=== PATIENT | male | born 1955 | race Two or more races ===

== ENCOUNTER 2023-10-11 22:43 | Inpatient (IN) | payer MEDICARE ==
[~2023-10-11] VITALS: Ht 185.4 cm; Wt 99.8 kg
[2023-10-11 22:57] LABS: BASOPHILS % (AUTO) 0.2 % (0.0-2.0); EOSINOPHILS # (AUTO) 0.1 K/uL (0.0-0.7); HEMATOCRIT 41 % (39-51); HEMOGLOBIN 13.4 g/dL (13.5-17.5); LYMPHOCYTES # (AUTO) 1.6 K/uL (0.8-4.8); LYMPHOCYTES % (AUTO) 26.1 % (20.0-44.0); MEAN CORPUSCULAR HEMOGLOBIN 31 PG (26.0-33.0); MEAN CORPUSCULAR HGB CONC 33 g/dl (31.0-36.0); MEAN CORPUSCULAR VOLUME 94 fL (80-96); MONOCYTES # (AUTO) 0.3 K/uL (0.1-1.30); MONOCYTES % (AUTO) 5.3 % (2.0-12.0); NEUTROPHILS # (AUTO) 4.1 K/uL (1.8-8.9); NEUTROPHILS % (AUTO) 66.4 % (43.0-81.0); PLATELET COUNT (AUTO) 199 K/uL (150-450); RED BLOOD CELL COUNT(AUTO) 4.35 MIL/uL (4.5-6.0); RED CELL DISTRIBUTION WIDTH 13.7 % (11.5-15.0); WHITE BLOOD COUNT (AUTO) 6.1 K/uL (4.3-11.0)
[2023-10-11] MEDS ORDERED: IOHEXOL-350 100 ML VIAL IV ONE (22:57)
[2023-10-11 23:09] LABS: CARBON DIOXIDE 21 mmol/L (21-32); CHLORIDE 105 mmol/L (98-107); GLUCOSE 102 mg/dL (74-106); POTASSIUM 3.6 mmol/L (3.5-5.1); SODIUM SERUM 135 mmol/L (136-145); UREA NITROGEN, BLOOD 9 mg/dL (7-18)
[2023-10-11 23:10] LABS: INR 1.08 (0.91-1.10); PROTHROMBIN TIME 11.4 SECS (9.2-11.1)
[2023-10-11 23:12] LABS: ALANINE AMINOTRANSFERASE 13 U/L (12-78); ALBUMIN 3.7 g/dL (3.4-5.0); ALKALINE PHOSPHATASE 78 U/L (46-116); ASPARTATE AMINOTRANSFERASE 12 U/L (15-37); BILIRUBIN,DIRECT 0.2 mg/dL (0.0-0.2); BILIRUBIN,TOTAL 0.8 mg/dL (0.2-1.0); CALCIUM, SERUM 10.1 mg/dL (8.5-10.1); TOTAL PROTEIN, SERUM 7.2 g/dL (6.4-8.2)
[2023-10-11] MEDS ORDERED: ASPIRIN 325 MG TABLET ONE (23:49)
[2023-10-11] MEDS: ASPIRIN 325 MG TABLET PO ONE (23:55)
[2023-10-12] MEDS ORDERED: hydrALAZINE HCL IV 20 MG VIAL IV PRN (01:00)
[2023-10-12] MEDS ORDERED: MORPHINE SULFATE INJ 2 MG/ML DISP.SYRIN IV PRN (01:00)
[2023-10-12] MEDS ORDERED: ACETAMINOPHEN 325 MG TABLET PO PRN (01:00)
[2023-10-12 01:15] VITALS: BP 143/82; TEMP 98.4; O2SAT 99
[2023-10-12 04:00] VITALS: BP 139/83; TEMP 97.9; O2SAT 98
[2023-10-12 07:00] VITALS: BP 132/82; TEMP 98.4; O2SAT 97
[2023-10-12] MEDS: HEPARIN SODIUM, PORCINE 5000 UNITS/1 ML VIAL SQ SCH (09:14)
[2023-10-12] MEDS ORDERED: OXYB5TAB16 PO (11:46)
[2023-10-12] MEDS ORDERED: GABA-536 PO (11:46)
[2023-10-12] MEDS ORDERED: MELA3TAB41 PO (11:46)
[2023-10-12] MEDS ORDERED: LITH300C4 PO (11:46)
[2023-10-12] MEDS ORDERED: ASCO-352 PO (11:46)
[2023-10-12] MEDS ORDERED: QUET50TA PO (11:46)
[2023-10-12] MEDS ORDERED: FERR325T28 PO (11:46)
[2023-10-12] MEDS ORDERED: CHOL200059 PO (11:46)
[2023-10-12] MEDS ORDERED: FINA5TAB4 PO (11:46)
[2023-10-12 12:14] LABS: THYROID STIMULATING HORMONE 1.45 uIU/mL (0.358-3.74)
[2023-10-12 16:00] VITALS: BP 108/64; TEMP 98.1; O2SAT 100
[2023-10-12] MEDS ORDERED: MELATONIN 3 MG TABLET PO PRN (19:30)
[2023-10-12 20:21] VITALS: BP 123/75; TEMP 98.9; O2SAT 95
[2023-10-12] MEDS ORDERED: LITHIUM CARBONATE 150 MG CAPSULE ONE (21:36)
[2023-10-12] MEDS: GABAPENTIN 400 MG CAPSULE PO SCH (21:40)
[2023-10-12] MEDS: OXYBUTYNIN CHLORIDE 5 MG TABLET PO SCH (21:40)
[2023-10-12] MEDS: QUETIAPINE FUMARATE 100 MG TABLET PO SCH (21:40)
[2023-10-12] MEDS: LITHIUM CARBONATE (300 MG CAP) 300 MG CAPSULE PO SCH (22:00)
[2023-10-12] MEDS: ONDANSETRON HCL/PF 4 MG/2 ML VIAL IVP PRN (22:14)
[2023-10-13 07:25] LABS: BASOPHILS % (AUTO) 0.3 % (0.0-2.0); EOSINOPHILS # (AUTO) 0.1 K/uL (0.0-0.7); EOSINOPHILS % (AUTO) 1.2 % (0.0-6.0); HEMATOCRIT 41 % (39-51); HEMOGLOBIN 13.9 g/dL (13.5-17.5); LYMPHOCYTES # (AUTO) 2.1 K/uL (0.8-4.8); LYMPHOCYTES % (AUTO) 24.9 % (20.0-44.0); MEAN CORPUSCULAR HEMOGLOBIN 32 PG (26.0-33.0); MEAN CORPUSCULAR HGB CONC 34 g/dl (31.0-36.0); MEAN CORPUSCULAR VOLUME 94 fL (80-96); MONOCYTES # (AUTO) 0.6 K/uL (0.1-1.30); MONOCYTES % (AUTO) 6.6 % (2.0-12.0); NEUTROPHILS # (AUTO) 5.8 K/uL (1.8-8.9); PLATELET COUNT (AUTO) 220 K/uL (150-450); RED BLOOD CELL COUNT(AUTO) 4.33 MIL/uL (4.5-6.0); RED CELL DISTRIBUTION WIDTH 13.7 % (11.5-15.0); WHITE BLOOD COUNT (AUTO) 8.6 K/uL (4.3-11.0)
[2023-10-13 07:33] LABS: ALBUMIN 3.5 g/dL (3.4-5.0); BILIRUBIN,TOTAL 0.9 mg/dL (0.2-1.0); CALCIUM, SERUM 10.3 mg/dL (8.5-10.1); CREATININE 0.9 mg/dL (0.6-1.3); MAGNESIUM 2.6 mg/dL (1.8-2.4); PHOSPHORUS 2.5 mg/dL (2.5-4.9); POTASSIUM 3.9 mmol/L (3.5-5.1)
[2023-10-13 07:44] LABS: THYROID STIMULATING HORMONE 0.85 uIU/mL (0.358-3.74)
[2023-10-13 08:00] VITALS: BP 102/45; TEMP 97.9; O2SAT 97
[2023-10-13 08:39] VITALS: BP 152/91; TEMP 97.9; O2SAT 98
[2023-10-13] MEDS: CHOLECALCIFEROL 1,000 UNIT TABLET (VIT D3) PO SCH (09:10)
[2023-10-13] MEDS: FINASTERIDE (5 MG) 5 MG TABLET PO SCH (09:10)
[2023-10-13] MEDS: CYANOCOBALAMIN 1,000 MCG/ML VIAL IM SCH (09:11)
[2023-10-13] MEDS: ASCORBIC ACID 500 MG TABLET PO SCH (09:12)
[2023-10-13] MEDS ORDERED: LORAZEPAM 1 MG TABLET PO ONE (12:00)
[2023-10-13 20:00] VITALS: BP 152/91; TEMP 97.9; O2SAT 98
[2023-10-14 01:10] LABS: FOLIC ACID 3.7 ng/mL (>3.0)
[2023-10-14] MEDS: LORAZEPAM 1 MG TABLET PO PRN (02:20)
[2023-10-14 07:12] LABS: BASOPHILS % (AUTO) 0.2 % (0.0-2.0); EOSINOPHILS # (AUTO) 0.1 K/uL (0.0-0.7); EOSINOPHILS % (AUTO) 1.2 % (0.0-6.0); HEMATOCRIT 39 % (39-51); HEMOGLOBIN 12.7 g/dL (13.5-17.5); LYMPHOCYTES % (AUTO) 24.8 % (20.0-44.0); MEAN CORPUSCULAR HEMOGLOBIN 31 PG (26.0-33.0); MEAN CORPUSCULAR HGB CONC 33 g/dl (31.0-36.0); MEAN CORPUSCULAR VOLUME 94 fL (80-96); MONOCYTES # (AUTO) 0.6 K/uL (0.1-1.30); MONOCYTES % (AUTO) 7.1 % (2.0-12.0); NEUTROPHILS # (AUTO) 5.5 K/uL (1.8-8.9); NEUTROPHILS % (AUTO) 66.7 % (43.0-81.0); PLATELET COUNT (AUTO) 207 K/uL (150-450); RED BLOOD CELL COUNT(AUTO) 4.15 MIL/uL (4.5-6.0); RED CELL DISTRIBUTION WIDTH 13.5 % (11.5-15.0); WHITE BLOOD COUNT (AUTO) 8.2 K/uL (4.3-11.0)
[2023-10-14 07:30] VITALS: BP 117/97; TEMP 98.2; O2SAT 96
[2023-10-14 07:52] LABS: CALCIUM, SERUM 10.9 mg/dL (8.5-10.1); CREATININE 0.9 mg/dL (0.6-1.3); MAGNESIUM 2.4 mg/dL (1.8-2.4); PHOSPHORUS 2.7 mg/dL (2.5-4.9); POTASSIUM 3.7 mmol/L (3.5-5.1)
[2023-10-14 08:50] VITALS: BP 124/76; TEMP 97.9; O2SAT 96
[2023-10-14] MEDS: FERROUS SULFATE (325 MG) 325 MG/TAB TABLET PO SCH (09:16)
[2023-10-14] MEDS ORDERED: ASPIRIN 81 MG TAB.CHEW PO SCH (11:00)
[2023-10-14 16:00] VITALS: BP 140/122; TEMP 98.1; O2SAT 100
[2023-10-14 20:00] VITALS: BP 124/76; TEMP 97.9; O2SAT 96
[2023-10-14] MEDS ORDERED: ATORVASTATIN 10 MG TABLET PO SCH (22:00)
[2023-10-15 08:00] VITALS: BP 112/80; TEMP 98.2; O2SAT 94
[2023-10-15] MEDS: ASPIRIN EC 81 MG TABLET.DR PO SCH (09:17)
[2023-10-15] MEDS ORDERED: LITHIUM CARBONATE (300 MG CAP) 300 MG CAPSULE PO SCH (17:00)
== END 2023-10-15 13:00 | DRG 92 ==
LOC: ER 22:50 → TELE 10-12 00:30 → MED 10-12 10:03
PROVIDERS: ADMIT Student in an Organized Health Care Education/Training Program; ATTEND Nurse Practitioner Acute Care
DX: G92.8 Other toxic encephalopathy (principal); E87.1 Hypo-osmolality and hyponatremia; R47.01 Aphasia; F31.64 Bipolar disorder, current episode mixed, severe, with psychotic features; T43.595A Adverse effect of other antipsychotics and neuroleptics, initial encounter; R47.1 Dysarthria and anarthria; N40.0 Benign prostatic hyperplasia without lower urinary tract symptoms; F19.11 Other psychoactive substance abuse, in remission; F25.0 Schizoaffective disorder, bipolar type; Y92.89 Other specified places as the place of occurrence of the external cause
CPT/HCPCS: 36415; 70450-TC; 70496-TC; 70498-TC; 71045-TC; 80048-TC; 80053-TC; 80061-TC; 80076-TC; 80178-TC; 82607-TC; 82962-TC; 83735-TC; 83921; 84100-TC; 84443-TC; 84484-TC; 85025-TC; 85730-TC; 92526; 92611-TC; 93307-TC; 97110-TC; 97116-TC; 97530-TC; 97535-TC; G0378; J1644; J2405; J3420; Q9967